=== PATIENT | female | born 1940 | race Caucasian/White ===

== ENCOUNTER 2016-07-28 19:40 | Emergency (ER) | payer MEDICARE, OTHER ==
[2016-07-28 21:54] LABS: HEMOGLOBIN 11.7 gm/dl (12.3-15.3); RED BLOOD COUNT 4.26 M/UL (4.00-5.10)
[2016-07-28 22:13] LABS: BUN/CREATININE RATIO 23 (0-10)
== END 2016-07-29 01:41 | disposition home or self-care (01) ==
LOC: ER1 19:40
PROVIDERS: Physician Assistant
DX: M62.89 Other specified disorders of muscle (principal); Z88.6 Allergy status to analgesic agent
CPT/HCPCS: 36415; 70450; 80053; 85025; 86140; 99284